=== PATIENT | female | born 1945 | race Caucasian/White ===

== ENCOUNTER 2018-02-08 10:54 | Outpatient (CLI) | payer OTHER ==
[~2018-02-08 10:54] MED LIST: ACET-6842 PO; ACET-787 PO; ALPR0.5T2 PO; ASPI81CT89 PO; ATOR10TA PO; CLON0.1T42 PO; CLOP75TA PO; DOCU-61 PO; ESOM40EC PO; FURO-570 PO; NIFE10SG6 PO; NOVN SUBQ; SERT50TA PO; SEVE800T6 PO; TIM.5OS OP; VALS40TA3 PO
== END 2018-02-08 20:56 | disposition home or self-care (01) ==
LOC: MRD 10:54
PROVIDERS: ATTEND Internal Medicine Geriatric Medicine
DX: M51.37 Other intervertebral disc degeneration, lumbosacral region (principal); G95.29 Other cord compression; M12.88 Other specific arthropathies, not elsewhere classified, other specified site
CPT/HCPCS: 72080

== ENCOUNTER 2019-03-17 16:22 | Inpatient (IN) | payer OTHER ==
[~2019-03-17] VITALS: Ht 149.9 cm; Wt 65.8 kg
[~2019-03-17 16:22] MED LIST changes: +ASPI-1718 PO; -ASPI81CT89 PO
[2019-03-17 16:35] VITALS: BP 71/38
--- NOTE | 2019-03-17 16:40 | NUR ---
PT BIB DAUGHTER C/O LOW ABD PAIN, FEVER, W/D, GENERALIZED WEAKNESS. MOIST PRODUCTIVE COUGH, RR NON-LABORED, CRACKLES THROUGHOUT. PT HYPOTENSIVE, CAP REFIL DELAYED. ER MD TO SEE PT. HX-HYPOTENSION,PNA,DIALYSIS, ESRD,PACEMAKER
--- NOTE | 2019-03-17 16:45 | NUR ---
Patient wheelchair assisted to bed 06.
[2019-03-17] MEDS ORDERED: ALBUTEROL SULFATE/IPRATROPIU 3 ML SOL IH ONE (16:55)
--- NOTE | 2019-03-17 17:07 | NUR ---
X-RAY AND LAB JUST FINISHED AT BEDSIDE, RT AT BEDSIDE AT THIS TIME
[2019-03-17 17:21] LABS: BASOPHILS % (AUTO) 0.5 % (0.0-2.0); EOSINOPHILS # (AUTO) 0.3 K/uL (0-0.4); EOSINOPHILS % (AUTO) 2.9 % (0.0-4.0); HEMATOCRIT 31.7 % (36-48); HEMOGLOBIN 10.4 g/dL (12.0-16.0); LYMPHOCYTES # (AUTO) 0.9 K/uL (2.5-16.5); LYMPHOCYTES % (AUTO) 8.8 % (20.5-51.1); MEAN CORPUSCULAR HEMOGLOBIN 32 pg (27-31); MEAN CORPUSCULAR HGB CONC 33 g/dL (33-37); MEAN CORPUSCULAR VOLUME 96.7 fL (80-94); MONOCYTES # (AUTO) 0.9 K/uL (0.8-1.0); MONOCYTES % (AUTO) 8.9 % (1.7-9.3); NEUTROPHILS # (AUTO) 7.7 K/uL (1.8-7.7); NEUTROPHILS % (AUTO) 78.9 % (42.2-75.2); PLATELET COUNT (AUTO) 153 K/uL (140-450); RED BLOOD CELL COUNT(AUTO) 3.28 MIL/uL (4.20-5.40); RED CELL DISTRIBUTION WIDTH 16.5 % (11.6-13.7); WHITE BLOOD COUNT (AUTO) 9.8 K/uL (4.8-10.8)
[2019-03-17] MEDS ORDERED: ASPI-1718 PO (17:31)
[2019-03-17] MEDS ORDERED: [UNRECOGNIZED DRUG - CODE] OP (17:31)
[2019-03-17] MEDS ORDERED: PRA1 PO (17:31)
[2019-03-17] MEDS ORDERED: BRIM5SOL2 OP (17:31)
[2019-03-17] MEDS ORDERED: ATOR10TA PO (17:31)
[2019-03-17] MEDS ORDERED: ESOM40EC PO (17:31)
[2019-03-17] MEDS ORDERED: TRAM50TA1 PO (17:31)
[2019-03-17] MEDS ORDERED: HYDR-5122 PO (17:31)
[2019-03-17] MEDS ORDERED: SENN-73 PO (17:31)
[2019-03-17] MEDS ORDERED: PAX20 PO (17:31)
[2019-03-17] MEDS ORDERED: ALPR0.5T2 PO (17:31)
[2019-03-17] MEDS ORDERED: MEMA5TAB PO (17:31)
[2019-03-17] MEDS ORDERED: MULTIVITAMIN PO (17:31)
[2019-03-17] MEDS ORDERED: VITA1TAB44 PO (17:31)
[2019-03-17] MEDS ORDERED: [UNRECOGNIZED DRUG - OTHER] PO (17:31)
[2019-03-17] MEDS ORDERED: PRO5 PO (17:31)
[2019-03-17] MEDS ORDERED: CYCL10TA14 PO (17:31)
[2019-03-17] MEDS ORDERED: SEVE800T6 PO (17:31)
[2019-03-17 17:36] LABS: ANION GAP 13.2 (8-16); CARBON DIOXIDE 30.4 mmol/L (21-32); CHLORIDE 96 mmol/L (98-107); CREATININE 3.2 mg/dL (0.6-1.3); GLUCOSE 170 mg/dL (74-106); POTASSIUM 3.6 mmol/L (3.5-5.1); SODIUM SERUM 136 mmol/L (136-145); UREA NITROGEN, BLOOD 22 mg/dL (7-18)
[2019-03-17 17:42] LABS: ALBUMIN 3.3 g/dL (3.4-5.0); ASPARTATE AMINOTRANSFERASE 23 U/L (15-37); TOTAL BILIRUBIN 0.7 mg/dL (0.0-1.0)
[2019-03-17] MEDS ORDERED: LEVOFLOXACIN 500 MG/D5W PREMIX 100 ML IV ONE (17:50)
--- NOTE | 2019-03-17 17:52 | NUR ---
PT PREFERRED NASAL CANNULA OVER NON REBREATHER SINCE SHE WAS ACTIVELY COUGHING SECRETIONS. PLACED PT ON 3L O2 N.C.
[2019-03-17] MEDS ORDERED: ALBUMIN HUMAN 25% 50 ML IV ONE (17:55)
[2019-03-17] MEDS: NACL 0.9% 500 ML IV SCH ×2 (18:01→19:23)
[2019-03-17] MEDS ORDERED: hydrOXYzine HCL 25 MG TAB PO ONE (18:55)
[2019-03-17] MEDS ORDERED: PROMETHAZINE 25 MG/ML VIAL IM ONE (18:55)
[2019-03-17] MEDS ORDERED: METOCLOPRAMIDE 10 MG TAB PO ONE (18:55)
[2019-03-17] MEDS ORDERED: FAMOTIDINE 20 MG TAB PO ONE (18:55)
--- NOTE | 2019-03-17 19:12 | NUR ---
RECEIVED REPORT FROM WAGNER SORENSEN.
--- NOTE | 2019-03-17 20:36 | NUR ---
Patient appears to be resting comfortably in bed. Vital Signs within normal limits. Pt denies pain/discomfort. Intermittent cough present. Awaiting bed for admission.
--- NOTE | 2019-03-17 21:39 | NUR ---
Dr. Titus evaluating patient at bedside.
[2019-03-17] MEDS ORDERED: guaiFENesin/CODEINE 100/10MG 5 ML UDC PO PRN (21:50)
--- NOTE | 2019-03-17 21:58 | NUR ---
Patient will be admitted to care of Dr. Perez. Admited to TELE. Will go to room 113. Belongings list completed. Report to WAGNER Dye.
[2019-03-17] MEDS ORDERED: HYDROcodone/APAP 5/325 MG 1 TAB TAB PO PRN (22:25)
--- NOTE | 2019-03-17 22:30 | NUR ---
RECEIVED REPORT FROM ER NURSE. PATIENT IS AWAKE, ALERT, AND COOPERATIVE. [place]BANIAN SPEAKER. PMH INFORMATION OBTAINED FROM THE DAUGHTER. PATIENT IS ADMITTED FOR RT LOW PNEUMONIA. RESPIRATION EVEN UNLABORED ON 2L O2 NC. SKIN IS WARM AND DRY. RIGHT ARM AV FISTULA SURGERY NOTED. MIRZA CATHETER NOTED TO THE RIGHT UPPER CHEST. IV PATENT AND INTACT. LUNGS SOUNDS CLEAR ON AUSCULTATION. BOWEL SOUNDS PRESENT IN ALL 4 QUADRANTS. LAST BM 03/17/19. PATIENT HAS A HX OF ENDSTAGE RENAL DISEASE. 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 MRSA SCREEN DONE. ALL SAFETY MEASURE IN PLACE. ISOLATION IN PLACE DUE TO PATIENT HAS A HX OF POSITVE MRSA NRASE. FALL RISK PROTOCOL IN PLACE. PLAN OF CARE WAS DISCUSSED. ORIENT PATIENT TO ROOM, STAFF, AND CALL LIGHT. BED IS AT LOW POSITION. CALL LIGHT WITHIN REACH. FAMILY AT BEDSIDE. WILL CONTINUE TO MONITOR.
--- NOTE | 2019-03-17 22:45 | NUR ---
PER DR. RODRIGUEZ ORDER DON'T USE RIGHT ARM AV FISTULA FOR DIALYSIS. USE THE MIRZA CATH RIGHT UPPER CHEST.
[2019-03-17 23:20] VITALS: BP 114/47
[2019-03-18] VITALS: BP 108/48
--- NOTE | 2019-03-18 | NUR ---
VITALS WERE TAKEN. PATIENT CONDITION STABLE. NO DISTRESS NOTED. FAMILY AT BEDSIDE WILL CONTINUE TO MONITOR
--- NOTE | 2019-03-18 02:00 | NUR ---
CHECKED PATIENT. PATIENT SLEEPING RESPIRATION EVEN UNLABORED ON 2L O2 NC. NO DISTRESS NOTED. WILL CONTINUE TO MONITOR.
[2019-03-18] MEDS: traMADol 50 MG TAB PO PRN ×2 (03:59→12:11)
--- NOTE | 2019-03-18 03:59 | NUR ---
VITALS WERE TAKEN. PATIENT COMPLAINED OF HEADACHE 6/10. PRN PAIN MED ADMINISTERED. WILL CONTINUE TO MONITOR
[2019-03-18 04:00] VITALS: BP 119/34
[2019-03-18] MEDS ORDERED: CLINDAMYCIN 600 MG/4 ML VIAL ONE (04:21)
[2019-03-18] MEDS ORDERED: CLINDAMYCIN 600 MG in DEXTROSE 5% 50 ML IV SCH (05:00)
[2019-03-18] MEDS ORDERED: LOTEPREDNOL ETABONATE OP SCH (05:00)
--- NOTE | 2019-03-18 05:00 | NUR ---
CHECKED PATIENT. PATIENT SLEEPING RESPIRATION EVEN UNLABORED ON 2L O2 NC. NO DISTRESS NOTED. WILL CONTINUE TO MONITOR
[2019-03-18] MEDS: ALPRAZolam 0.5 MG TAB PO PRN (05:24)
[2019-03-18] MEDS ORDERED: CYCLOBENZAPRINE 10 MG TAB PO PRN (07:17)
--- NOTE | 2019-03-18 07:29 | NUR ---
ENDORSED PATIENT TO DAY SHIFT NURSE FOR CONTINUITY OF CARE. PATIENT IS STABLE.
--- NOTE | 2019-03-18 07:30 | NUR ---
RECEIVED REPORT FROM METAL FITTERS AND MACHINISTS NURSE. PATIENT LYING DOWN IN BED SLEEPING, AROUSABLE BY VOICE. NO DISTRESS NOTED. FAMILY MEMBER AT BEDSIDE. DENIES ANY PAIN. AAOX3, CALM, COOPERATIVE, SKIN COLOR APPROPRIATE TO ETHNICITY, WARM TO TOUCH. SKIN INTACT. IV SITES INTACT, PATENT, ON SALINE LOCK. RESPIRATIONS EVEN, UNLABORED, ON ROOM AIR. REVIEWED PLAN OF CARE WITH PATIENT/FAMILY AT BEDSIDE. PATIENT/FAMILY VERBALIZE UNDERSTANDING. SAFETY MEASURES IN PLACE, CALL LIGHT WITHIN REACH. WILL CONTINUE TO MONITOR.
[2019-03-18] MEDS: PANTOPRAZOLE 40 MG TABEC PO SCH (07:38)
[2019-03-18 08:00] VITALS: BP 117/26
[2019-03-18 08:17] LABS: ANION GAP 10.4 (8-16); CARBON DIOXIDE 29.3 mmol/L (21-32); CHLORIDE 99 mmol/L (98-107); CREATININE 3.9 mg/dL (0.6-1.3); GLUCOSE 80 mg/dL (74-106); POTASSIUM 3.7 mmol/L (3.5-5.1); SODIUM SERUM 135 mmol/L (136-145); UREA NITROGEN, BLOOD 28 mg/dL (7-18)
--- NOTE | 2019-03-18 08:28 | NUR ---
PATIENT HAS BEEN SCREENED AND CATEGORIZED MODERATE NUTRITION RISK. PATIENT WILL BE SEEN WITHIN 3-5 DAYS OF ADMISSION. 03/20/[address]
[2019-03-18] MEDS ORDERED: [UNRECOGNIZED DRUG - OTHER] PO SCH (09:00)
[2019-03-18] MEDS ORDERED: OSELTAMIVIR PHOSPHATE 75 MG CAP PO SCH (09:00)
[2019-03-18] MEDS ORDERED: NON-FORMULARY ITEM (Esomeprazole Magnesium* (Nexium*) 40 MG) PO SCH (09:00)
[2019-03-18] MEDS ORDERED: [UNRECOGNIZED DRUG - OTHER] PO SCH (09:00)
[2019-03-18] MEDS ORDERED: NON-FORMULARY ITEM (Brimonidine Tartrate/Timolol (Combigan 0.2%-0.5% Eye Drops) 5 ML) OP SCH (09:00)
[2019-03-18 09:02] LABS: BASOPHILS # (AUTO) 0.1 K/uL (0.00-0.22); BASOPHILS % (AUTO) 0.6 % (0.0-2.0); EOSINOPHILS # (AUTO) 0.4 K/uL (0-0.4); EOSINOPHILS % (AUTO) 5.3 % (0.0-4.0); HEMATOCRIT 30.8 % (36-48); LYMPHOCYTES # (AUTO) 1.4 K/uL (2.5-16.5); LYMPHOCYTES % (AUTO) 17.4 % (20.5-51.1); MEAN CORPUSCULAR HEMOGLOBIN 32 pg (27-31); MEAN CORPUSCULAR HGB CONC 33 g/dL (33-37); MEAN CORPUSCULAR VOLUME 97.2 fL (80-94); MONOCYTES # (AUTO) 1.2 K/uL (0.8-1.0); MONOCYTES % (AUTO) 14.7 % (1.7-9.3); PLATELET COUNT (AUTO) 144 K/uL (140-450); RED BLOOD CELL COUNT(AUTO) 3.17 MIL/uL (4.20-5.40); RED CELL DISTRIBUTION WIDTH 16.4 % (11.6-13.7); WHITE BLOOD COUNT (AUTO) 8.1 K/uL (4.8-10.8)
[2019-03-18] MEDS: SEVELAMER CARBONATE 800 MG TAB PO SCH ×2 (09:24→17:31)
[2019-03-18] MEDS: MIDODRINE 5 MG TAB PO SCH ×3 (09:24→17:34)
[2019-03-18] MEDS: ASPIRIN 81 MG TAB.CHEW PO SCH (09:25)
[2019-03-18] MEDS: PARoxetine 20 MG TAB PO SCH (09:25)
[2019-03-18] MEDS: SENNA 8.6 MG TAB PO SCH ×2 (09:25→21:22)
[2019-03-18] MEDS: MEMANTINE 10 MG TAB PO SCH ×2 (09:25→21:22)
[2019-03-18] MEDS: VIT-B COMP/VIT-C/FOLIC ACID 1 TAB PO SCH (09:26)
[2019-03-18] MEDS: TAMIFLU 30 MG PO SCH (09:29)
--- NOTE | 2019-03-18 09:32 | NUR ---
PATIENT SLEEPING, AROUSABLE BY VOICE. NO DISTRESS NOTED AT THIS TIME. SCHEDULED MEDS GIVEN. WILL CONTINUE TO MONITOR.
[2019-03-18 12:00] VITALS: BP 121/40
[2019-03-18] MEDS: REPAGLINIDE 1 MG TAB PO SCH ×2 (12:11→17:34)
--- NOTE | 2019-03-18 12:16 | NUR ---
PATIENT SITTING ON CHAIR. VERBALIZED GENERALIZED PAIN. GAVE TRAMADOL PER MD ORDER. ADMINISTERED SCHEDULED MEDICATION. WILL CONTINUE TO MONITOR.
[2019-03-18] MEDS: CLINDAMYCIN PHOS 600MG/D5W PM 50 ML IV SCH ×2 (13:26→21:23)
[2019-03-18 16:00] VITALS: BP 137/48
[2019-03-18] MEDS ORDERED: ALBUTEROL SULFATE/IPRATROPIU 3 ML SOL IH PRN (17:00)
--- NOTE | 2019-03-18 17:38 | NUR ---
PATIENT SLEEPING COMFORTABLY. EASILY AROUSABLE. ADMINISTERED SCHEDULE MEDICATIONS. NO DISTRESS NOTED AT THIS TIME. WILL CONTINUE TO MONITOR.
--- NOTE | 2019-03-18 19:14 | NUR ---
GAVE REPORT TO FITNESS FLOOR ATTENDANT NURSE FOR CONTINUITY OF CARE. PATIENT IN STABLE CONDITION.
--- NOTE | 2019-03-18 19:35 | NUR ---
RECEIVED BEDSIDE REPORT FROM DAY SHIFT NURSE. PT IN STABLE CONDITION. PATIENT AWAKE, ALERT, AND COOPERATIVE. RESPIRATION EVEN UNLABORED ON 2L O2 NC. NO S/S OF SOB OR ANY DISCOMFORT. DENIED PAIN. SKIN IS WARM AND DRY IV SITE PATENT, INTACT, AND ASYMPTOMATIC. FAMILY AT BEDSIDE. ALL SAFETY MEASURES IN PLACE. PLAN OF CARE WAS DISCUSSED. BED IN LOW POSITION. CALL LIGHT WITHIN REACH. WILL CONTINUE TO MONITOR.
[2019-03-18 20:00] VITALS: BP 138/41
--- NOTE | 2019-03-18 20:00 | NUR ---
INITIAL ASSESSMENT DONE. VITALS WERE TAKEN. PATIENT CONDITION STABLE. FAMILY AT BEDSIDE WILL CONTINUE TO MONITOR
[2019-03-18] MEDS ORDERED: LOTEPREDNOL 0.5% OP SCH (21:00)
--- NOTE | 2019-03-18 21:00 | NUR ---
ALL SCHEDULED MEDS WERE GIVEN PER ORDER. NO ASE NOTED. WILL CONTINUE TO MONITOR
[2019-03-18] MEDS: ATORVASTATIN 20 MG TAB PO SCH (21:22)
[2019-03-18] MEDS: LOTEPREDNOL 0.5% OP SCH (21:23)
[2019-03-18] MEDS: BRIMONIDINE OP SCH (21:24)
[2019-03-18] MEDS: TIMOLOL OP SCH (21:24)
--- NOTE | 2019-03-18 22:00 | NUR ---
AMBULATES PATIENT TO THE BATHROOM WITHOUT O2. PATIENT O2 DROPS AND SATING 90-91% ROOM AIR.
[2019-03-18] MEDS: ALBUTEROL SULFATE/IPRATROPIU 3 ML SOL IH SCH (23:09)
--- NOTE | 2019-03-18 23:22 | NUR ---
RECEIVED PATIENT ON 2L NASAL CANNULA, PULSE OX SAT 98%. FAMILY AT BEDSIDE. SCHEDULED BREATHING TREATMENT ADMINISTERED. TOLERATED TX WELL. NO ADVERSE SIDE EFFECTS. NO RESPIRATORY DISTRESS NOTED AT THIS TIME. WILL CONTINUE TO MONITOR.
[2019-03-19] VITALS: BP 140/46
--- NOTE | 2019-03-19 | NUR ---
VITALS WERE TAKEN. PATIENT CONDITION STABLE. NO DISTRESS NOTED. FAMILY AT BEDSIDE. WILL CONTINUE TO MONITOR.
[2019-03-19 04:00] VITALS: BP 135/40
--- NOTE | 2019-03-19 04:00 | NUR ---
VITALS WERE TAKEN. PATIENT CONDITION STABLE. PATIENT COMPLAINED OF RESTLESSNESS AND ANXIETY PRN ANTIANXIETY ADMINISTERED PER ORDER. WILL CONTINUE TO MONITOR
[2019-03-19] MEDS: CLINDAMYCIN PHOS 600MG/D5W PM 50 ML IV SCH ×3 (04:07→21:09)
[2019-03-19] MEDS: ALPRAZolam 0.5 MG TAB PO PRN (04:24)
[2019-03-19] MEDS: PANTOPRAZOLE 40 MG TABEC PO SCH ×2 (05:55→06:49)
[2019-03-19] MEDS: REPAGLINIDE 1 MG TAB PO SCH ×3 (06:52→16:27)
--- NOTE | 2019-03-19 07:17 | NUR ---
ENDORSED PATIENT TO DAY SHIFT NURSE. PATIENT CONDITION IS STABLE
--- NOTE | 2019-03-19 07:18 | NUR ---
RECEIVED REPORT FROM DIRECTOR OF PERSONNEL NURSE. PATIENT IS SITTING IN BED, FAMILY PRESENT AT BEDSIDE.. RESPIRATIONS ARE EVEN AND UNLABORED ON 2L NC. DENIES PAIN AT THIS TIME. NO SIGNS OF DISTRESS NOTED. IV SITES INTACT AND PATENT ON SL. SKIN DRY AND INTACT. RIGHT AV FISTULA AND RIGHT SUBCLAVIAN MIRZA CATH NOTED. REVIEWED PLAN OF CARE WITH PATIENT AND FAMILY. PATIENT VERBALIZED UNDERSTANDING. SAFETY MEASURES IN PLACE, CALL LIGHT WITHIN REACH. WILL CONTINUE TO MONITOR.
[2019-03-19] MEDS: ALBUTEROL SULFATE/IPRATROPIU 3 ML SOL IH SCH ×3 (07:48→22:36)
[2019-03-19 08:00] VITALS: BP 142/47
--- NOTE | 2019-03-19 08:00 | NUR ---
HEMODIALYSIS NURSE ON UNIT TO START HEMODIALYSIS TODAY PER MD ORDERS. WILL CONTINUE TO MONITOR.
[2019-03-19] MEDS: ASPIRIN 81 MG TAB.CHEW PO SCH (09:40)
[2019-03-19] MEDS: SEVELAMER CARBONATE 800 MG TAB PO SCH ×2 (09:41→16:26)
[2019-03-19] MEDS: PARoxetine 20 MG TAB PO SCH (09:41)
[2019-03-19] MEDS: CHOLECALCIFEROL 1,000 IU TAB PO SCH (09:41)
[2019-03-19] MEDS: SENNA 8.6 MG TAB PO SCH ×2 (09:42→21:11)
[2019-03-19] MEDS: TIMOLOL OP SCH ×2 (09:43→21:12)
[2019-03-19] MEDS: BRIMONIDINE OP SCH ×2 (09:43→21:12)
[2019-03-19] MEDS: LOTEPREDNOL 0.5% OP SCH ×2 (09:43→21:12)
[2019-03-19] MEDS: VIT-B COMP/VIT-C/FOLIC ACID 1 TAB PO SCH (09:44)
[2019-03-19] MEDS: MIDODRINE 5 MG TAB PO SCH ×3 (09:44→16:26)
[2019-03-19] MEDS: MEMANTINE 10 MG TAB PO SCH ×2 (09:44→21:10)
--- NOTE | 2019-03-19 09:50 | NUR ---
PATIENT IS SITTING WITH SON AND HEMODIALYSIS NURSE AT THE BEDSIDE. NO SIGNS OF DISTRESS NOTED. DENIES PAIN AT THIS TIME. ADMINISTERED SCHEDULED MEDICATIONS. WILL CONTINUE TO MONITOR.
--- NOTE | 2019-03-19 11:39 | NUR ---
HEMODIALYSIS COMPLETED. 3L OUT. PATIENT TOLERATED WELL. V/S STABLE. WILL CONTINUE TO MONITOR.
[2019-03-19 11:43] VITALS: BP 112/44
--- NOTE | 2019-03-19 12:55 | NUR ---
AMBULATE WITH PATIENT AROUND MST HALLWAYS WITH PULSE OXIMETER. PATIENT LOWEST PULSE OXIMETER DURING AMBULATION WAS 88%, AVERAGED 90% DURING AMBULATION. PULSE OX 91% SITTING ON BED AFTER AMBULATION FOR ABOUT 2 MINUTES AROUND HALLWAYS PER PATIENT TOLERATED BEFORE GETTING TIRED. WILL CONTINUE TO MONITOR.
--- NOTE | 2019-03-19 14:05 | NUR ---
PATIENT LYING DOWN IN BED SLEEPING, AROUSABLE BY VOICE. NO DISTRESS NOTED. DENIES ANY PAIN. CONDITION UNCHANGED. FAMILY MEMBER AT BEDSIDE. WILL CONTINUE TO MONITOR.
[2019-03-19] MEDS: traMADol 50 MG TAB PO PRN (15:17)
--- NOTE | 2019-03-19 15:18 | NUR ---
PATIENT SITTING IN BED. C/O OF HEADACHE PAIN. ADMINISTERED PRN TRAMADOL. THERE IS NO SIGN OF ANY DISTRESS. WILL CONTINUE TO MONITOR.
[2019-03-19 16:00] VITALS: BP 120/47
--- NOTE | 2019-03-19 18:15 | NUR ---
OXYGEN VIA NC REMOVED. AFTER 1 HOUR ON ROOM AIR AND PATIENT RESTING, SITTING IN BED, O2 SAT IS 88-92% ON ROOM AIR. WILL CONTINUE TO MONITOR.
--- NOTE | 2019-03-19 19:25 | NUR ---
GAVE REPORT TO NIGHT NURSE. PATIENT IS IN STABLE CONDITION.
--- NOTE | 2019-03-19 19:26 | NUR ---
RECEIVED BEDSIDE REPORT FROM SHARONA EDWARD. PT IS AAOX4. PT LEGALLY BLIND BED ALARM ON AND LOWEST POSITION. DAUGHTER BRANDIN IS AT BEDSIDE. SKIN INTACT. IV ON L HAND 22G SL AND L AC 20G SL. HAS R AV FISTULA AND R SUB QUITON CATH. PT HD T,TH,SAT. LAST HD TODAY 3L OUTPUT. PT IS ANURIC. AMB WITH ASSIST. PT ON ROOM AIR. RESPIRATIONS ARE EQUAL AND UNLABORED. PLAN OF CARE DISCUSSED WITH PT. CALL LIGHT WITHIN REACH. WILL CONTINUE TO MONITOR.
[2019-03-19 20:00] VITALS: BP 108/43
[2019-03-19] MEDS ORDERED: LEVOFLOXACIN 500 MG/D5W PREMIX 100 ML IV SCH (21:00)
--- NOTE | 2019-03-19 21:09 | NUR ---
SCHEDULED MEDICATIONS ADMINISTERED. VITAL SIGNS ARE WITHIN NORMAL LIMITS. ALL NEEDS MET AT THIS TIME. DAUGHTER AND FAMILY ARE AT BEDSIDE. WILL CONTINUE TO MONITOR.
[2019-03-19] MEDS: ATORVASTATIN 20 MG TAB PO SCH (21:10)
[2019-03-20] VITALS: BP 115/38
--- NOTE | 2019-03-20 | NUR ---
VITAL SIGNS ARE WITHIN NORMAL LIMITS. DAUGHTER AT BEDSIDE. NO S/S OF DISTRESS. PT WITH NC 2L O2. RESPIRATIONS ARE EQUAL AND UNLABORED. WILL CONTINUE TO MONITOR.
--- NOTE | 2019-03-20 02:16 | NUR ---
PT IS SLEEPING COMFORTABLY IN BED. RESPIRATIONS ARE EQUAL AND UNLABORED. SAFETY MEASURES ARE IN PLACE. CALL LIGHT WITHIN REACH. WILL CONTINUE TO MONITOR.
[2019-03-20 04:00] VITALS: BP 120/74
--- NOTE | 2019-03-20 04:00 | NUR ---
VITAL SIGNS ARE WITHIN NORMAL LIMITS. ALL NEED MET AT THIS TIME. DAUGHTER IS AT BEDSIDE. WILL CONTINUE TO MONITOR.
[2019-03-20] MEDS: CLINDAMYCIN PHOS 600MG/D5W PM 50 ML IV SCH ×2 (05:12→12:30)
[2019-03-20] MEDS: traMADol 50 MG TAB PO PRN (05:12)
[2019-03-20] MEDS: REPAGLINIDE 1 MG TAB PO SCH ×3 (06:49→17:33)
[2019-03-20] MEDS: PANTOPRAZOLE 40 MG TABEC PO SCH (06:49)
[2019-03-20] MEDS: ALBUTEROL SULFATE/IPRATROPIU 3 ML SOL IH SCH ×2 (06:58→15:09)
--- NOTE | 2019-03-20 07:30 | NUR ---
BEDSIDE REPORT GIVEN TO DAY SHIFT RN. PT ENDORSED IN STABLE CONDITION.
--- NOTE | 2019-03-20 07:31 | NUR ---
Report received from pm nurse Janette. Pt in bed, awake, no signs of distress. Daughter at bedside with pt. Call light within reach. L hand IV & L AC IV saline lock, asymptomatic. Will cont to monitor.
[2019-03-20 08:00] VITALS: BP 130/51
[2019-03-20 08:00] LABS: BASOPHILS % (AUTO) 0.7 % (0.0-2.0); EOSINOPHILS # (AUTO) 0.3 K/uL (0-0.4); EOSINOPHILS % (AUTO) 4.6 % (0.0-4.0); HEMATOCRIT 30.6 % (36-48); LYMPHOCYTES # (AUTO) 1.3 K/uL (2.5-16.5); LYMPHOCYTES % (AUTO) 20.8 % (20.5-51.1); MEAN CORPUSCULAR HEMOGLOBIN 31 pg (27-31); MEAN CORPUSCULAR HGB CONC 33 g/dL (33-37); MEAN CORPUSCULAR VOLUME 96.2 fL (80-94); MONOCYTES # (AUTO) 0.9 K/uL (0.8-1.0); MONOCYTES % (AUTO) 13.7 % (1.7-9.3); NEUTROPHILS # (AUTO) 3.9 K/uL (1.8-7.7); NEUTROPHILS % (AUTO) 60.2 % (42.2-75.2); PLATELET COUNT (AUTO) 170 K/uL (140-450); RED BLOOD CELL COUNT(AUTO) 3.19 MIL/uL (4.20-5.40); RED CELL DISTRIBUTION WIDTH 16.3 % (11.6-13.7); WHITE BLOOD COUNT (AUTO) 6.4 K/uL (4.8-10.8)
[2019-03-20 08:27] LABS: ANION GAP 16.2 (8-16); CHLORIDE 93 mmol/L (98-107); GLUCOSE 119 mg/dL (74-106); POTASSIUM 4.2 mmol/L (3.5-5.1); SODIUM SERUM 132 mmol/L (136-145); UREA NITROGEN, BLOOD 31 mg/dL (7-18)
[2019-03-20 08:30] LABS: AMYLASE 32 U/L (25-115); LIPASE 147 U/L (73-393)
[2019-03-20 08:38] LABS: CREATININE 4.2 mg/dL (0.6-1.3)
[2019-03-20] MEDS: MIDODRINE 5 MG TAB PO SCH ×3 (09:00→17:33)
[2019-03-20] MEDS: PARoxetine 20 MG TAB PO SCH (09:18)
[2019-03-20] MEDS: CHOLECALCIFEROL 1,000 IU TAB PO SCH (09:18)
[2019-03-20] MEDS: SENNA 8.6 MG TAB PO SCH (09:18)
[2019-03-20] MEDS: SEVELAMER CARBONATE 800 MG TAB PO SCH ×2 (09:18→17:33)
[2019-03-20] MEDS: VIT-B COMP/VIT-C/FOLIC ACID 1 TAB PO SCH (09:18)
[2019-03-20] MEDS: ASPIRIN 81 MG TAB.CHEW PO SCH (09:19)
[2019-03-20] MEDS: MEMANTINE 10 MG TAB PO SCH (09:19)
[2019-03-20] MEDS: TAMIFLU 30 MG PO SCH (09:19)
[2019-03-20] MEDS: TIMOLOL OP SCH (09:20)
[2019-03-20] MEDS: BRIMONIDINE OP SCH (09:20)
[2019-03-20] MEDS: LOTEPREDNOL 0.5% OP SCH (09:21)
[2019-03-20 12:00] VITALS: BP 126/45
[2019-03-20] MEDS ORDERED: BISACODYL 10 MG SUPP RC PRN (12:50)
--- NOTE | 2019-03-20 12:50 | NUR ---
Pt requesting for rectal supp for constipation. Per pt, she had small BM in am, but cont to feel constipated. Dr. Perez notified via phone, received telephone order for bisacodyl supp. Order noted & carried out.
--- NOTE | 2019-03-20 14:00 | NUR ---
Bisacodyl supp administered at this time d/t pt c/o feeling constipated. No stool present in rectal vault. Son at bedside.
--- NOTE | 2019-03-20 15:00 | NUR ---
Bisacodyl reassessment. Pt with x1 small stool. Pt verbalizes relief of constipation. Abd soft. Son at bedside.
[2019-03-20] MEDS ORDERED: LEVO750T2 PO (15:45)
[2019-03-20] MEDS ORDERED: CLIN300C2 PO (15:47)
--- NOTE | 2019-03-20 16:40 | NUR ---
Daughter Lara at bedside requesting to bring pt home today. Per Lara, pt has O2 concentrator & backup tanks at home that they have purchased privately. Per Lara, her sister will bring an O2 tank to hospital to transport home with pt. Dr Perez notified, per Dr. Perez ok to discharge home today. Pt & family aware.
--- NOTE | 2019-03-20 18:00 | NUR ---
Pt's daughter Lara arrived with full O2 tank from home. Written & verbal discharge instructions provided to daughter & pt. Verbalized understanding. Pt discharged at this time to home, left unit via wheelchair, accompanied by daughter Lara. No signs of distress. Pt stable. All belongings with daughter upon discharge. Left hand & Left AC IV discontinued, cannulas intact, no bleeding noted.
--- NOTE | 2019-03-21 07:33 | NUR ---
Late entry. Confirmed with RN the Levaquin IVPB completed at 1900. Albumin IV completed at 191.
--- NOTE | 2019-03-21 14:19 | NUR ---
SPOKE WITH DR. HOLT THIS P.M. SHE SAID THAT THIS PATIENT NEEDED HOME O2. THE PATIENT ALREADY WENT HOME YESTERDAY ON 03/20/19. FAXED THE FACE SHEET,ORDER, CERTIFICATE OF MEDICAL NECESSITY . ORDER AND H&P AND DOCUMENTATION OF O2 SAT TO [facility] [phone] PHONE [phone].
--- NOTE | 2019-03-21 14:26 | NUR ---
ALSO FAXED DISCHARGE SUMMARY TO [facility], PER FERMIN.
--- NOTE | 2019-03-21 16:08 | NUR ---
RECEIVED A CALL FROM RACHAEL [facility] SHE TOLD ME THAT THEY CANNOT SERVICE THE PATIENT FOR THE OXYGEN BECAUSE THE PATIENT WAS DISCHARGE YESTERDAY WITHOUT O2. SHE SAID THAT THE PATIENT WOULD HAVE TO HAVE HER PCP OR PULMINOLOGIST ORDER THE OXYGEN. I CALLED DR. HOLT AND INFORMED HER..
== END 2019-03-20 18:00 | disposition home or self-care (01) | DRG 193 ==
LOC: MED 16:22 → MTU 19:24
PROVIDERS: ADMIT Internal Medicine Geriatric Medicine; ATTEND Internal Medicine Geriatric Medicine
PROC: 5A1D70Z Performance of Urinary Filtration, Intermittent, Less than 6 Hours Per Day (ICD-10-PCS; principal; 2019-03-19)
DX: J18.1 Lobar pneumonia, unspecified organism (principal); N18.6 End stage renal disease; I42.9 Cardiomyopathy, unspecified; J44.0 Chronic obstructive pulmonary disease with (acute) lower respiratory infection; Z99.11 Dependence on respirator [ventilator] status; I13.2 Hypertensive heart and chronic kidney disease with heart failure and with stage 5 chronic kidney disease, or end stage renal disease; E11.22 Type 2 diabetes mellitus with diabetic chronic kidney disease; I50.9 Heart failure, unspecified; D64.9 Anemia, unspecified; N20.0 Calculus of kidney; F41.9 Anxiety disorder, unspecified; I48.0 Paroxysmal atrial fibrillation; Y95 Nosocomial condition; D63.8 Anemia in other chronic diseases classified elsewhere; K59.09 Other constipation; K80.20 Calculus of gallbladder without cholecystitis without obstruction; H54.8 Legal blindness, as defined in USA; Z99.2 Dependence on renal dialysis; Z87.442 Personal history of urinary calculi; Z87.01 Personal history of pneumonia (recurrent); Z82.49 Family history of ischemic heart disease and other diseases of the circulatory system; Z79.899 Other long term (current) drug therapy; Z79.82 Long term (current) use of aspirin
CPT/HCPCS: 36415; 36600; 71045; 80048; 80053; 82150; 82803; 82948; 83605; 83690; 83880; 84484; 85025; 87040; 87081; 87205; 87804; 89220; 90935; 93005; 94640; 96365; 99285; J1956; J2550; J3490; J7030; J7060; J7620; J8597; P9046; Q0092